=== PATIENT | female | born 1990 | race Caucasian/White ===

== ENCOUNTER 2016-08-02 05:02 | Emergency (ER) | payer OTHER ==
[~2016-08-02] VITALS: Ht 167.6 cm; Wt 79.4 kg
--- NOTE | 2016-08-02 05:23 | ED GI/GU/ABDOMINAL COMPLAINT ---
History of Present Illness General Chief Complaint: Abdominal Pain/Flank Pain Stated Complaint: ABD PAIN Source: patient Exam Limitations: no limitations Vital Signs & Intake/Output Vital Signs & Intake/Output Vital Signs Date Time Temp Pulse Resp B/P B/P Pulse O2 O2 Flow FiO2 Mean Ox Delivery Rate 08/02 0932 97.0 66 18 114/58 98 Room Air 08/02 0729 98.1 88 16 108/70 98 Room Air 08/02 0523 97.6 94 16 111/71 97 Room Air Room Air Allergies Coded Allergies: amoxicillin (Mild, ABDS PAIN 08/02/16) Triage Note: 25YO FEMALE TO TRIAGE W/CO MID UPPER ABD PAIN X 2 D. DENIES VOMITING, STATES DIARRHEA ON MON NIGHT AND NOW STOOLS ARE DARK. Triage Nurses Notes Reviewed? yes ? n Is pt currently ? No Duration: day(s):, waxing and waning Timing: recent history Quality/Severity: burning, sharpness Location: epigastric Radiation: no radiation Activities at Onset: none, sleep Prior Abdominal Problems: none Modifying Factors: Worsens With: palpation. Associated Symptoms: abdominal pain HPI: 25 yo woman, inprior good health, presents with 2 days of mid epigastric discomfort, burning, worse at night, associated with mild nausea. She took pepto bismol without significant improvement. She notes no fever, chills, dyspnea. No spicy food ingestion, excessive caffeine, alcohol. She is otherwise well. (CÉSAR DOUGLAS,NADEGE Lraa) Past History Medical History Any Pertinent Medical History? see below for history Surgical History Surgical History: none Family History Hx Contributory? No (CÉSAR DOUGLAS,NADEGE Lara) Review of Systems Review of Systems Constitutional: Reports: no symptoms. EENTM: Reports: no symptoms. Respiratory: Reports: no symptoms. Cardiovascular: Reports: no symptoms. GI: Reports: no symptoms. Genitourinary: Reports: no symptoms. Musculoskeletal: Reports: no symptoms. Skin: Reports: no symptoms. Neurological/Psychological: Reports: no symptoms. Hematologic/Endocrine: Reports: no symptoms. Immunologic/Allergic: Reports: no symptoms. All Other Systems: Reviewed and Negative (CÉSAR DOUGLAS,NADEGE Lara) Physical Exam Physical Exam General Appearance: well developed/nourished, mild distress Head: atraumatic, normal appearance Eyes: Bilateral: normal appearance. Ears, Nose, Throat, Mouth: hearing grossly normal Neck: normal inspection, supple, full range of motion, normal alignment Respiratory: normal breath sounds, chest non-tender, no respiratory distress, quiet respiration, lungs clear Cardiovascular: regular rate/rhythm Gastrointestinal: normal bowel sounds, soft, mild mid epigastric tenderness to palpation. no rebound/guarding. no bryant's sign. Back: normal inspection, normal range of motion Extremities: normal range of motion Neurologic/Psych: no motor/sensory deficits, awake, alert, oriented x 3 Skin: intact, normal color, warm/dry Core Measures ACS in differential dx? No Severe Sepsis Present: No Septic Shock Present: No (CÉSAR DOUGLAS,NADEGE Lara) Progress Differential Diagnosis: gerd, gastritis vs other. Plan of Care: Orders Procedure Date/time Status LIPASE 08/02 618 Complete HEPATIC FUNCTION PANEL 08/02 618 Complete CBC WITHOUT DIFFERENTIAL 08/02 618 Complete BASIC METABOLIC PANEL 08/02 618 Complete AMYLASE 08/02 618 Complete URINE 08/02 524 Complete URINALYSIS 08/02 524 Complete Laboratory Tests 08/02/16 0635: Anion Gap 12, Estimated GFR > 60, BUN/Creatinine Ratio 24.0, Glucose 91, Calcium 8.7, Total Bilirubin 0.4, Direct Bilirubin 0.2, AST 25, ALT 60 H, Alkaline Phosphatase 60, Total Protein 6.4, Albumin 3.7, Amylase 59, Lipase 102, CBC w Diff NO MAN DIFF REQ, RBC 4.69, MCV 84.6, MCH 28.7, RDW 12.9, MPV 6.6 L, Gran % 69.9, Lymphocytes % 18.4 L, Monocytes % 9.7 H, Eosinophils % 1.7, Basophils % 0.3, Absolute Granulocytes 3.7, Absolute Lymphocytes 1.0 L, Absolute Monocytes 0.5, Absolute Eosinophils 0.1, Absolute Basophils 0, PUBS MCHC 33.9 08/02/16 0525: Urine Color YEL, Urine Clarity CLEAR, Urine pH 6.0, Ur Specific [place] 1.025, Urine Protein 30 H, Urine Ketones NEG, Urine Nitrite NEG, Urine Bilirubin NEG, Urine Urobilinogen 1.0, Ur Leukocyte Esterase NEG, Ur Microscopic SEDIMENT EXAMINED, Urine RBC RARE, Urine WBC 1-3 H, Ur Epithelial Cells FEW, Urine Bacteria MOD H, Urine Hemoglobin NEG, Urine Glucose NEG, Urine Test NEGATIVE Initial ED EKG: none Hand-Off Endorsed To: ANGEL LUIS MAX MD Endorsed Time: 0700 Pending: labs (CÉSAR DOUGLAS,NADEGE Lara) Diagnostic Imaging: Discussed w/RAD: CT Scan. Radiology Impression: PATIENT: EMELI CRUZ PRESENT AGE: 25 PATIENT ACCOUNT NO: [id number] : 91 LOCATION: [facility] ORDERING PHYSICIAN: ANGEL LUIS MAX MD SERVICE DATE: 08/02/16 EXAM TYPE: US - US-LIMITED ABDOMEN EXAMINATION: US ABDOMEN LIMITED CLINICAL INFORMATION: Epigastric pain; question biliary disease. COMPARISON: None. TECHNIQUE: Real- time imaging of the right upper quadrant abdominal viscera. FINDINGS: PANCREAS: Normal. LIVER: The liver demonstrates normal size, contour and mild increase in echogenicity. No focal lesion or intrahepatic biliary duct dilatation. GALLBLADDER: Normal. The gallbladder is physiologically distended without evidence of stones, sludge, polyps, wall thickening or pericholecystic fluid. COMMON BILE DUCT: Normal in caliber measuring 0.3 cm in diameter. RIGHT KIDNEY: Normal. No hydronephrosis. No renal calculi or focal parenchymal lesions. The kidney measures 12.3 cm in maximum dimension. FREE FLUID: None. IMPRESSION: 1. There is mild generalized increase in hepatic echotexture, consistent with fatty infiltration or hepatocellular disease. Please correlate clinically. No focal hepatic mass or intrahepatic biliary dilatation is seen. 2. Otherwise, unremarkable abdominal ultrasound examination. DICTATED BY: SHORTY OLIVEROS MD DATE/TIME DICTATED:08/02/16948 TICKET ATTENDANT:SERA DATE/TIME TRANSCRIBED:08/02/16948 CONFIDENTIAL, DO NOT COPY WITHOUT APPROPRIATE AUTHORIZATION. <Electronically signed in Other Vendor System> SIGNED BY: SHORTY OLIVEROS MD 08/02/16 0954 Comments: 08/02/2016 7:37 AM patient signed out to me by Dr. Jaquez at shift size changer. 08/02/16 07:51 pt reevaluated by me, found asleep initially. pt states constant 3 days of tightness or squeezing epigastric pain that is unaffected by movement or position. feels better briefly after eating. has had milder episodes in past ( prior GI workup unrevealing). some improvement with gi cocktail in ED. mild tenderness of epigastric region w/o rebound or guarding. bowel sounds nl. 08/02/2016 10:27:53 AM I have updated the Emeli on her test results. The cause of her pain is unclear at this point. I plan on providing a proton pump inhibitor and pain medication. She will follow-up with her GI specialist. Appendicitis-the patient did not have migration of the pain to the right lower quadrant, tenderness over McBurney's point, Rovsing sign, white cell blood count was not elevated Peritonitis-the patient had no rebound or guarding, did not have a rigid abdomen , the white blood cell count was not elevated and There was no inflammatory process on diagnostic imaging studies. Cholecystitis-the patient had no Bryant's sign on exam, white blood cell count was normal, and diagnostic imaging studies showed no inflammatory changes in the region of the gallbladder on us Pancreatitis-the lipase was normal, patient had no history of alcohol abuse or hypertriglyceridemia, but the diagnostic imaging studies did not show inflammation or edema in the area of the pancreas GI bleed-patient had no history of prior GI bleed, patient denied consistent use of NSAIDs, the patient is not taking anticoagulants such as Coumadin, the patient denied melena. AAA-the patient has a paucity of significant risk factors for vascular disease, there is no pulsatile abdominal mass, lower extremity pulses were equal Hernia-there were no apparent hernias on physical examination, the patient denied any unusual bulges or masses Ischemic bowel-the patient has a paucity of risk factors for vascular disease or thrombosis, physical examination did not reveal pain out of proportion to physical exam findings, Bowel obstruction-patient's abdomen was not significantly distended or hypertympanitic, patient had good bowel sounds, patient was having bowel movements and passing flatus. (ERENDIRA DOUGLAS,ANGEL LUIS Kasper) Departure Departure Condition: Stable Referrals: GLADYS DOUGLAS,ABDULKADIR Valdes (PCP/Family) Departure Forms: Customer Survey General Discharge Information Comments 08/02/16, 7am... pt signed out to dr. max... lab results are pending. clinical response to gi cocktail and ppi is pending. (CÉSAR DOUGLAS,NADEGE Lara) Departure Disposition: HOME OR SELF CARE Clinical Impression Primary Impression: Abdominal pain Qualifiers: Abdominal location: epigastric Qualified Code: R10.13 - Epigastric pain Prescriptions: Current Visit Scripts Pantoprazole Sodium (Protonix) 1 TAB PO DAILY #30 TAB Tramadol HCl (Ultram) 1-2 TAB PO Q6P PRN PAIN #20 TAB (ERENDIRA DOUGLAS,ANGEL LUIS Kasper)
[2016-08-02 06:47] LABS: ABSOLUTE BASOPHIL COUNT 0 /CUMM (0.0-0.2); ABSOLUTE EOSINOPHIL COUNT 0.1 /CUMM (0.0-0.7); ABSOLUTE GRANULOCYTE CT 3.7 /CUMM (1.4-6.5); ABSOLUTE MONOCYTE COUNT 0.5 /CUMM (0.10-0.60); BASOPHIL % 0.3 % (0.0-2.0); EOSINOPHIL % 1.7 % (0-5); GRANULOCYTE % 69.9 % (42.2-75.2); HEMATOCRIT 39.7 % (37-47); MEAN CORPUSCULAR HGB 28.7 PG (27.0-31.0); MEAN CORPUSCULAR HGB CONC 33.9 G/DL (33.0-37.0); MEAN CORPUSCULAR VOLUME 84.6 FL (81.0-99.0); MEAN PLATELET VOLUME 6.6 FL (7.4-10.4); PLATELET COUNT 230 /CUMM (130-400); RBC DISTRIBUTION WIDTH 12.9 % (11.5-14.5); RED BLOOD CELL CT 4.69 /CUMM (4.20-5.40); WHITE BLOOD CELL COUNT 5.3 /CUMM (4.8-10.8)
--- NOTE | 2016-08-02 09:54 | ULTRASOUND REPORT ---
EXAMINATION: US ABDOMEN LIMITED CLINICAL INFORMATION: Epigastric pain; question biliary disease. COMPARISON: None. TECHNIQUE: Real-time imaging of the right upper quadrant abdominal viscera. FINDINGS: PANCREAS: Normal. LIVER: The liver demonstrates normal size, contour and mild increase in echogenicity. No focal lesion or intrahepatic biliary duct dilatation. GALLBLADDER: Normal. The gallbladder is physiologically distended without evidence of stones, sludge, polyps, wall thickening or pericholecystic fluid. COMMON BILE DUCT: Normal in caliber measuring 0.3 cm in diameter. RIGHT KIDNEY: Normal. No hydronephrosis. No renal calculi or focal parenchymal lesions. The kidney measures 12.3 cm in maximum dimension. FREE FLUID: None. IMPRESSION: 1. There is mild generalized increase in hepatic echotexture, consistent with fatty infiltration or hepatocellular disease. Please correlate clinically. No focal hepatic mass or intrahepatic biliary dilatation is seen. 2. Otherwise, unremarkable abdominal ultrasound examination.
[2016-08-02] MEDS ORDERED: PROTONIX20 M1 PO (10:30)
[2016-08-02] MEDS ORDERED: ULTRAM50 M1 PO (10:30)
[2016-08-02 10:42] VITALS: BP 122/60
== END 2016-08-02 10:42 ==
LOC: ERH 05:02
PROVIDERS: Pediatrics
DX: R10.13 Epigastric pain (principal)
CPT/HCPCS: 81001; 81025; 96361; 96374; 96375

== ENCOUNTER 2016-08-31 12:55 | Emergency (ER) | payer OTHER ==
[~2016-08-31 12:55] MED LIST: PROTONIX20 M1 PO; ULTRAM50 M1 PO
[2016-08-31] MEDS ORDERED: ALPRAZOLAM0.5 M4 PO (13:04)
[2016-08-31] MEDS ORDERED: XIFAXAN550 M1 PO (13:04)
[2016-08-31] MEDS ORDERED: VENLAFAXINE HCL75 M1 PO (13:04)
[2016-08-31] MEDS ORDERED: PROBIOTIC1 EACH PO (13:05)
--- NOTE | 2016-08-31 13:05 | ED GI/GU/ABDOMINAL COMPLAINT ---
History of Present Illness General Chief Complaint: General Adult Stated Complaint: "PER PT N+V+D, BODY PAIN, ABD PAIN" Source: patient Exam Limitations: no limitations Vital Signs & Intake/Output Vital Signs & Intake/Output Vital Signs Date Time Temp Pulse Resp B/P B/P Pulse O2 O2 Flow FiO2 Mean Ox Delivery Rate 09/01 1943 98.0 83 18 101/54 98 Room Air 08/31 1836 97.9 80 15 98/54 97 Room Air Room Air 08/31 1728 97.6 89 15 95/54 98 Room Air Room Air 08/31 1655 95/52 08/31 1628 97.0 82 16 93/53 96 Room Air 08/31 1407 Room Air Room Air 08/31 1306 98.3 115 16 102/65 96 Room Air Allergies Coded Allergies: amoxicillin (Mild, ABDS PAIN 08/02/16) Reconcile Medications Alprazolam 0.5 MG TABLET 1 TAB PO TIDPRN ANXIETY (Reported) Lactobacillus Acidophilus (Probiotic) 10 BILLION CELL CAPSULE 1 CAP PO TID SUPPLEMENT (Reported) Ondansetron (Zofran Odt) 4 MG TAB.RAPDIS 1 TAB PO Q6 PRN NAUSEA Rifaximin (Xifaxan) 550 MG TABLET 1 TAB PO BID IBD (Reported) Venlafaxine HCl (Venlafaxine HCl ER) 75 MG CAP.ER.24H 1 CAP PO DAILY DEPRESSION (Reported) Triage Note: PT STATES SHE HAS BEEN HAVING VOMITING AND DIARRHEA SINCE 5PM YESTERDAY. UNABLE TO KEEP ANYTHING IN. STATES HER UPPER ABDOMEN HURTS WELL. Triage Nurses Notes Reviewed? yes ? N Is pt currently ? No Onset: Abrupt Duration: hour(s): (20) Timing: multiple episodes today Quality/Severity: moderate, severe Location: epigastric Associated Symptoms: abdominal pain, diarrhea, nausea/vomiting HPI: This is a 26-year-old female who presents to the ER for treatment of multiple episodes of nausea vomiting and diarrhea which began last night at 5:00 in the afternoon. She states that she's vomited more than 12 times and has had innumerable bowel movements. Denies any blood in her stool. Denies any fever or chills. LMP 5/4. She states that Past History Travel History Traveled to [place] past 21 day No Medical History Any Pertinent Medical History? see below for history Gastrointestinal: GERD, ibs Surgical History Surgical History: ENDOSCOPY X 2 RECTAL ABSCESS Psychosocial History What is your primary language Honduran Tobacco Use: Never used ETOH Use: occasional use Illicit Drug Use: denies illicit drug use Family History Hx Contributory? No Review of Systems Review of Systems Constitutional: Denies: chills, fever. EENTM: Reports: no symptoms. Respiratory: Denies: cough, short of breath. Cardiovascular: Denies: chest pain, palpitations. GI: Reports: abdominal pain, diarrhea, nausea, vomiting. Genitourinary: Reports: no symptoms. Musculoskeletal: Reports: no symptoms. Skin: Reports: no symptoms. Neurological/Psychological: Reports: no symptoms. Hematologic/Endocrine: Denies: bruising, bleeding, polyuria, polydipsia. Immunologic/Allergic: Denies: splenectomy. All Other Systems: Reviewed and Negative Physical Exam Physical Exam General Appearance: well developed/nourished, alert, awake, anxious, mild distress, moderate distress Head: atraumatic, normal appearance Eyes: Bilateral: normal appearance, PERRL, EOMI. Ears, Nose, Throat, Mouth: hearing grossly normal, moist mucous membrane Neck: normal inspection, supple, full range of motion Respiratory: normal breath sounds, chest non-tender, no respiratory distress Cardiovascular: regular rate/rhythm Peripheral Pulses: 2+ radial (R), 2+ radial (L) Gastrointestinal: normal bowel sounds, soft, non-tender Extremities: normal range of motion Neurologic/Psych: no motor/sensory deficits, awake, alert, oriented x 3 Core Measures ACS in differential dx? No Severe Sepsis Present: No Septic Shock Present: No Progress Differential Diagnosis: FOOD POISONING?, GASTROENTERITIS, MIGUEL, DEHYDRATION, PUD/ GERD, CHOLECYSTITIS, PANCREATITIS Plan of Care: Orders Procedure Date/time Status Clear Liquid Diet 09/01 B Active URINALYSIS 08/31 1308 Complete MAGNESIUM 08/31 1308 Complete LIPASE 08/31 1308 Complete HUMAN BETA HCG SCREEN 08/31 1308 Complete COMPREHENSIVE METABOLIC PANEL 08/31 1308 Complete CBC WITHOUT DIFFERENTIAL 08/31 1308 Complete Laboratory Tests 08/31/16 1800: Urine Color YEL, Urine Clarity CLEAR, Urine pH 6.0, Ur Specific [place] >= 1.030 , Urine Protein 30 H, Urine Ketones 15 H, Urine Nitrite NEG, Urine Bilirubin NEG@ICTO, Urine Urobilinogen 1.0, Ur Leukocyte Esterase NEG, Ur Microscopic SEDIMENT EXAMINED, Urine RBC 1-3, Urine WBC 3-5 H, Ur Epithelial Cells FEW, Urine Bacteria MOD H, Urine Mucus MOD H, Urine Hemoglobin MOD H, Urine Glucose NEG 08/31/16 1320: Anion Gap 12, Estimated GFR > 60, BUN/Creatinine Ratio 30.0 H, Glucose 106 H, Calcium 9.0, Magnesium 1.8, Total Bilirubin 0.8, AST 24, ALT 62 H, Alkaline Phosphatase 67, Total Protein 7.1, Albumin 4.3, Globulin 2.8, Albumin/Globulin Ratio 1.5, Lipase 45, Total Beta HCG NEGATIVE, CBC w Diff NO MAN DIFF REQ, RBC 5.05, MCV 83.7, MCH 28.7, RDW 12.8, MPV 7.2 L, Gran % 85.8 H, Lymphocytes % 6.9 L, Monocytes % 6.9, Eosinophils % 0.4, Basophils % 0 L, Absolute Granulocytes 7.9 H, Absolute Lymphocytes 0.6 L, Absolute Monocytes 0.6, Absolute Eosinophils 0, Absolute Basophils 0, PUBS MCHC 34.3 NS, ZOFRAN, PEPCID, LABS ORDERED. TORADOL, PHENERGEN, MORPHINE ORDERED 08/31/2016 5:41:08 PM Patient with 3 L of IV fluids on board. Nausea is improved but still complains of epigastric abdominal pain. Finally feels like she may need to urinate at this point. Abdominal exam is soft but still pump operator in the epigastric. CAT scan ordered. (KAREN DOUGLAS,TERRI) Diagnostic Imaging: Viewed by Me: CT Scan. Discussed w/RAD: CT Scan. Radiology Impression: PATIENT: KIM CRUZ PRESENT AGE: 26 PATIENT ACCOUNT NO: [id number] : 91 LOCATION: [facility] ORDERING PHYSICIAN: TERRI JONES MD SERVICE DATE: 08/31/16 EXAM TYPE: CAT - CT ABD & PELVIS W IV CONTRAST EXAMINATION: CT ABDOMEN AND PELVIS WITH CONTRAST CLINICAL INFORMATION: Abdominal pain. Vomiting and diarrhea. COMPARISON : Ultrasound 08/02/2016. TECHNIQUE: Multidetector volumetric imaging was performed of the abdomen and pelvis before and after the IV administration of 95 mL of Optiray 350 intravenous contrast. Sagittal and coronal reformatted images were obtained on the technologist's workstation. DLP: 414 mGy-cm FINDINGS: LUNG BASES: Subsegmental atelectasis at the lung bases. The visualized cardiac structures are unremarkable. LIVER, GALLBLADDER, AND BILIARY TREE: The liver is normal in size, shape, and attenuation. No focal hepatic lesion or biliary ductal dilatation is present. The gallbladder is unremarkable with no evidence of radiopaque gallstones, gallbladder wall thickening, or obvious pericholecystic inflammatory changes. PANCREAS: Unremarkable. SPLEEN: Unremarkable. ADRENAL GLANDS: Unremarkable. KIDNEYS AND URETERS: The kidneys are normal in size and shape. There is an area of hypoattenuation extending to the posterior cortex of the right mid to upper pole which is nonspecific. No hydronephrosis or hydroureter. There is a 0.3 cm left midpole renal calculus, 8 cm from the posterior axillary line. BLADDER: Unremarkable. GASTROINTESTINAL TRACT: The stomach and small bowel are unremarkable. No dilated loops of bowel or evidence of obstruction. Normal appendix. No colonic wall thickening or inflammatory change. Mild colonic diverticulosis without diverticulitis. No free air or free fluid. ABDOMINAL WALL: No significant hernia is appreciated. LYMPH NODES: Normal. VASCULAR: Unremarkable. PELVIC VISCERA: The uterus is unremarkable. Mild fullness of the bilateral adnexa likely associated with ovarian follicles. There is prominent ovarian draining vasculature. OSSEOUS STRUCTURES: No acute or suspicious osseous abnormality. IMPRESSION: 1. No acute inflammatory changes of the abdomen or pelvis. No evidence for colitis. 2. Somewhat hypoattenuating area of the posterior cortex of the right kidney. No adjacent inflammation to suggest infectious process, but correlation with laboratory values is recommended. 3. Nonobstructing left midpole renal calculus. 4. Prominent ovarian draining veins bilaterally. Correlate for pelvic congestion. DICTATED BY: ISABEL RENO MD DATE/TIME DICTATED:08/31/161853 MORNING NEWS PRODUCER:SERA DATE/TIME TRANSCRIBED:08/31/161853 CONFIDENTIAL, DO NOT COPY WITHOUT APPROPRIATE AUTHORIZATION. <Electronically signed in Other Vendor System> SIGNED BY: ISABEL RENO MD 08/31/161901 Initial ED EKG: none Departure Departure Time of Disposition: 1932 Disposition: HOME OR SELF CARE Condition: Stable Clinical Impression Primary Impression: Gastroenteritis Referrals: GLADYS DOUGLAS,ABDULKADIR Valdes (PCP/Family) Additional Instructions: Clear liquid diet for the next 12 hours and then advance as tolerated as we discussed. Zofran as needed for nausea. Your prescription is at [facility] in [place]. Return as needed. Departure Forms: Customer Survey General Discharge Information Prescriptions: Current Visit Scripts Ondansetron (Zofran Odt) 1 TAB PO Q6 PRN NAUSEA #20 TAB
[2016-08-31 13:37] LABS: ABSOLUTE BASOPHIL COUNT 0 /CUMM (0.0-0.2); ABSOLUTE EOSINOPHIL COUNT 0 /CUMM (0.0-0.7); ABSOLUTE GRANULOCYTE CT 7.9 /CUMM (1.4-6.5); ABSOLUTE LYMPH COUNT 0.6 /CUMM (1.2-3.4); ABSOLUTE MONOCYTE COUNT 0.6 /CUMM (0.10-0.60); BASOPHIL % 0 % (0.0-2.0); EOSINOPHIL % 0.4 % (0-5); HEMATOCRIT 42.3 % (37-47); MEAN CORPUSCULAR HGB 28.7 PG (27.0-31.0); MEAN CORPUSCULAR HGB CONC 34.3 G/DL (33.0-37.0); MEAN CORPUSCULAR VOLUME 83.7 FL (81.0-99.0); MEAN PLATELET VOLUME 7.2 FL (7.4-10.4); PLATELET COUNT 280 /CUMM (130-400); RBC DISTRIBUTION WIDTH 12.8 % (11.5-14.5); RED BLOOD CELL CT 5.05 /CUMM (4.20-5.40); WHITE BLOOD CELL COUNT 9.3 /CUMM (4.8-10.8)
[2016-08-31 13:59] LABS: GRANULOCYTE % 85.8 % (42.2-75.2)
--- NOTE | 2016-08-31 19:02 | CT SCAN REPORT ---
EXAMINATION: CT ABDOMEN AND PELVIS WITH CONTRAST CLINICAL INFORMATION: Abdominal pain. Vomiting and diarrhea. COMPARISON: Ultrasound 08/02/2016. TECHNIQUE: Multidetector volumetric imaging was performed of the abdomen and pelvis before and after the IV administration of 95 mL of Optiray 350 intravenous contrast. Sagittal and coronal reformatted images were obtained on the technologist's workstation. DLP: 414 mGy-cm FINDINGS: LUNG BASES: Subsegmental atelectasis at the lung bases. The visualized cardiac structures are unremarkable. LIVER, GALLBLADDER, AND BILIARY TREE: The liver is normal in size, shape, and attenuation. No focal hepatic lesion or biliary ductal dilatation is present. The gallbladder is unremarkable with no evidence of radiopaque gallstones, gallbladder wall thickening, or obvious pericholecystic inflammatory changes. PANCREAS: Unremarkable. SPLEEN: Unremarkable. ADRENAL GLANDS: Unremarkable. KIDNEYS AND URETERS: The kidneys are normal in size and shape. There is an area of hypoattenuation extending to the posterior cortex of the right mid to upper pole which is nonspecific. No hydronephrosis or hydroureter. There is a 0.3 cm left midpole renal calculus, 8 cm from the posterior axillary line. BLADDER: Unremarkable. GASTROINTESTINAL TRACT: The stomach and small bowel are unremarkable. No dilated loops of bowel or evidence of obstruction. Normal appendix. No colonic wall thickening or inflammatory change. Mild colonic diverticulosis without diverticulitis. No free air or free fluid. ABDOMINAL WALL: No significant hernia is appreciated. LYMPH NODES: Normal. VASCULAR: Unremarkable. PELVIC VISCERA: The uterus is unremarkable. Mild fullness of the bilateral adnexa likely associated with ovarian follicles. There is prominent ovarian draining vasculature. OSSEOUS STRUCTURES: No acute or suspicious osseous abnormality. IMPRESSION: 1. No acute inflammatory changes of the abdomen or pelvis. No evidence for colitis. 2. Somewhat hypoattenuating area of the posterior cortex of the right kidney. No adjacent inflammation to suggest infectious process, but correlation with laboratory values is recommended. 3. Nonobstructing left midpole renal calculus. 4. Prominent ovarian draining veins bilaterally. Correlate for pelvic congestion.
[2016-08-31] MEDS ORDERED: ZOFRAN ODT4 M1 PO (19:10)
[2016-08-31 19:44] VITALS: BP 101/54
== END 2016-08-31 19:45 ==
LOC: ERH 12:55
PROVIDERS: Emergency Medicine
DX: K52.9 Noninfective gastroenteritis and colitis, unspecified (principal)
CPT/HCPCS: 74177; 81001; 96361; 96374; 96375; 99291; J1885; J2405; J2550